=== PATIENT | female | born 1995 | race Hispanic/Latino ===

== ENCOUNTER → 2024-03-17 15:57 | Outpatient (CLI) | payer OTHER, SELFPAY ==
[2024-03-17 16:15] LABS: Hematocrit 41.6 % (36-46); Hemoglobin 13.9 g/dL (12.0-16.0); Mean Corpuscular HGB Conc 33.5 % (30-36); Mean Corpuscular Hemoglobin 29.7 PG (26-34); Mean Corpuscular Volume 88.7 fL (80-100); Platelet Count 309 X10^3/uL (150-400); Red Blood Cell Count 4.69 X10^6/uL (4.0-5.2); Red Cell Distribution Width 13.3 % (11.6-14.8); White Blood Cell Count 8.4 X10^3/uL (4.5-11.0)
[2024-03-17 16:42] LABS: HEMOLYSIS < 15 (0-50)
[2024-03-17 16:45] LABS: HEMOLYSIS < 15 (0-50); Iron 100 ug/dL (37-170)
[2024-03-17 16:47] LABS: Alanine Aminotransferase 17 IU/L (<35); Albumin 4.7 g/dL (3.5-5.0); Albumin Globulin Ratio 1.6 (1.0-2.8); Alkaline Phosphatase 119 U/L (38-126); Aspartate Aminotransferase 22 IU/L (14-36); BUN Creatinine Ratio 13.1 (6-22); Bilirubin Total 0.4 mg/dL (0.2-1.3); Blood Urea Nitrogen 8 mg/dL (7-17); Calcium 9.9 mg/dL (8.4-10.2); Carbon Dioxide 29 mmol/L (22-32); Chloride 103 mmol/L (98-107); Estimated Glomerular Filt Rate > 60 mL/min (>60); Globulin 2.9 g/dL (1.7-4.1); Glucose 103 mg/dL (70-100); Potassium 4.1 mmol/L (3.4-5.1); Sodium 139 mmol/L (137-145); Total Protein 7.6 g/dL (6.3-8.2)
[2024-03-17 16:56] LABS: Percent Iron Saturation 29 % (15-50); Total Iron Binding Capacity 343 ug/dL (265-497); Transferrin 280 mg/dL (206-381)
[2024-03-17 16:57] LABS: Vitamin D 25 Hydroxy (D3) 19.5 ng/mL (30.0-100.0)
[2024-03-17 17:16] LABS: TSH w/ Reflex to FT4 2.71 uIU/mL (0.47-4.68)
[2024-03-17 17:22] LABS: Ferritin 39 ng/mL (6-137)
[2024-03-17 17:37] LABS: Vitamin B12 Reflex MMA if <400 673 pg/mL (239-931)
[2024-03-17 17:52] LABS: Folate 11.5 ng/mL (2.76-20.0)
== END ==
PROVIDERS: PCP Family Medicine; Referring Provider Family Medicine; Visit Provider Family Medicine
DX: F32.A Depression, unspecified (principal); R53.83 Other fatigue; Z13.21 Encounter for screening for nutritional disorder; G47.00 Insomnia, unspecified; Z86.39 Personal history of other endocrine, nutritional and metabolic disease; F41.9 Anxiety disorder, unspecified; Z80.3 Family history of malignant neoplasm of breast
CPT/HCPCS: 36415; 80053; 82306; 82607; 82728; 82746; 83540; 83550; 84443; 85027

== ENCOUNTER → 2024-08-02 12:22 | Outpatient (CLI) | payer OTHER, SELFPAY ==
--- NOTE | 2024-08-02 12:23 | DI.US.S_ITS ---
PROCEDURE: US OB >= 14 WEEKS FETUS INDICATIONS: 20 WEEK ANATOMY OUTSIDE/PRIOR DATING DATA: Last menstrual period (LMP): 03/05/2024 LMP-based estimated date of delivery (ONUR): 12/20/2024. First dating scan (date and location): 05/07/2025. Estimated date of delivery (ONUR) from first dating scan: 12/20/2024. TECHNIQUE: Real-time scanning was performed of the fetus, with image documentation and biometric measurements. COMPARISON: None. FINDINGS: General: A single living intrauterine gestation is present. Presentation: Vertex. Placenta: Placental position is anterior , without previa. Amniotic fluid index: 17.6 cm, normal range is 5-24 cm. Single deepest vertical pocket is 6.3 cm. heart rate: 143 beats per minute. Maternal cervical canal: 3.2 cm long. Normal lower limit is 2.5 cm. biometrics: Biparietal diameter: 5.0 cm 21 weeks 1 day Head circumference: 18.9 cm 21 weeks 1 day Abdominal circumference: 16.8 cm 21 weeks 6 days Femur length: 3.5 cm 21 weeks 0 days Clinically estimated gestational age: 20 weeks 0 days Composite gestational age from present scan: 21 weeks 2 days Estimated weight and percentile: 422 g 98th percentile Anatomic survey: Neuro: Ventricles are non-dilated at less than 10 mm. Cisterna magna is normal at 3-11 mm. Cerebellum is normal in size and morphology. Nuchal skin fold: Normal at less than 6 mm between 14-21 weeks gestational age. Face: Nose and lips, facial profile are are suspicious for cleft lip on the right.. Spine: No evidence for spina bifida. Heart: 4-chambered heart is present, with normal ventricular outflow tracts. Diaphragm: Diaphragm is intact. Stomach: Left-sided stomach is present. Kidneys: No hydronephrosis. Normal is less than 5 mm in 2nd trimester, less than 7 mm in 3rd trimester. Cord: 3-vessel cord has orthotopic insertion. Bladder: Normal in size. Extremities: All 4 extremities identified. IMPRESSION: Single live intrauterine with gestational age today of 21 weeks 2 days. There is high suspicion for cleft lip on the right. Follow-up with tertiary care center is recommended. We strive to produce accurate, complete, and clear reports of imaging services. To assist us in improving patient care, this report was composed using standard report templates and voice recognition software. Therefore, it may contain abnormal punctuation, insertions and/or omissions. Occasional wrong-word or sound-alike substitutions may occur. Though we review the report and make efforts to correct it, we do recommend that the report be read carefully in proper context to recognize any text inaccuracies. Dictated by: Linda Orellana M.D. on 08/02/2024 at 16:33 Approved by: Linda Orellana M.D. on 08/02/2024 at 16:38
== END ==
PROVIDERS: PCP Family Medicine; Referring Provider Nurse Practitioner Obstetrics & Gynecology; Visit Provider Nurse Practitioner Obstetrics & Gynecology
DX: Z34.92 Encounter for supervision of normal pregnancy, unspecified, second trimester (principal); Z3A.21 21 weeks gestation of pregnancy
CPT/HCPCS: 76811

== ENCOUNTER 2024-11-19 14:30 | Inpatient (IN) | payer OTHER, SELFPAY ==
--- NOTE | 2024-11-19 14:40 | DI.US.S_ITS ---
PROCEDURE: US OB LIMITED INDICATIONS: JEREMI OUTSIDE/PRIOR DATING DATA: Last menstrual period (LMP): 03/05/2024. LMP-based estimated date of delivery (ONUR): 12/20/2024. First dating scan (date and location): 05/07/2024. Estimated date of delivery (ONUR) from first dating scan: 12/20/2024. The calculations are made using the working ultrasound ONUR of 12/20/2024. TECHNIQUE: Real-time scanning was performed of the fetus, with image documentation. Endovaginal scannin images. COMPARISON: None. FINDINGS: A single living intrauterine gestation is present. Presentation: Vertex. Placenta: Placental position is anterior, without previa. Amniotic fluid index: 3.1 cm, normal range is 5-24 cm. Single deepest vertical pocket is 2.0 cm. heart rate: 163 beats per minute. Maternal cervical canal: Not evaluated. Clinically estimated gestational age: 35 weeks 4 days IMPRESSION: Single living intrauterine with heart rate 163 beats per minute. Continued follow-up suggested Amniotic fluid index approximately 3.1 cm. Dictated by: Robert Gao M.D. on 11/19/2024 at 16:34 Approved by: Robert Gao M.D. on 11/19/2024 at 16:44
[2024-11-19 16:46] LABS: Add Manual Diff / Slide Review NO; Hematocrit 37.1 % (36-46); Hemoglobin 12.8 g/dL (12.0-16.0); Lymphocytes Absolute Auto 2000 /uL (1100-4500); Mean Corpuscular HGB Conc 34.6 % (30-36); Mean Corpuscular Hemoglobin 30.8 PG (26-34); Mean Corpuscular Volume 89.1 fL (80-100); Platelet Count 163 X10^3/uL (150-400)
--- NOTE | 2024-11-19 18:35 | PM.OBHP.1 ---
OB HPI Date/Time Date of admission: 11/19/24 Date Patient Seen: 11/19/24 Time Patient Seen: 18:00 History of Present Condition Chief complaint: NST : 5 Para: 3 Estimated Date of Delivery: 12/10/24 Estimated Gestational Age (weeks): 37w0d Narrative: Bharti Diamond is a 29 year old female at 37 weeks 0d consistent with LMP and MFM serial ultrasounds. She presents alone for an IOL following diagnosis of oligohydramnios by MFM earlier today. Bharti was planning a homebirth. She is GBS negative. Normal care with CNM co-managed by [facility] for cleft lip. She reports normal movement. No bleeding, cramping, or leaking of fluid. She is planning an unmedicated . She is here with her solution strategist, Beronica. Her is not present because he is deployed. Indications Indication for induction OB: oligohydramnios History of Present care: good care, initiated at week # (9), number of visits (8) and pounds weight gain (32) Dating criteria: other (based on LMP confirmed by serial MFM US and MFM recommendation) Ultrasounds: abnormal US findings (cleft lip) Obstetrical complications: none Medical complications: none Preadmission Labs -: Antibody screen: negative, Cystic fibrosis screen: unknown, GBS status: negative, HBsAG: negative, HIV: negative, HSV 1: positive, HSV 2: positive and RPR/VDLR: negative -: Chlamydia screen: not detected and Gonorrhea screen: not detected -: Rubella: immune and Varicella: immune HCT: 37.1 HCAB: negative PAP: Normal Cell-free DNA: negative x3 Urine: negative 1 hr GTT: 117 Prior (ies) Hx # Term Pregnancies: 3 Hx # Pregnancies: 0 Number of Living Children: 3 Multiple births: 0 Spontaneous abortions: 1 Ectopic pregnancies: 0 Elective abortions: 0 Evaluation Evaluation Baseline heart rate: 140 Variability: Moderate (6-25) monitor accelerations: Absent Monitor Decelerations: Absent Contraction Frequency (minutes): 4 Category of Tracing: Non-reactive Dilation (cm): 2 Effacement (%): 50 Dilation: 1-2 cm Effacement: 40-50% station: -2 Position of cervix: mid Consistency: soft Anderson score: 6 PFSH Medical History depression History of hypothyroidism Pelvic injury Family History (Updated 11/19/24 @ 19:18 by Dania Arcehr CNM, MANAN) Aunt Cancer Other Thyroid disease Meds Home Medications and Allergies Home Medications ?Medication ?Instructions ?Recorded ?Confirmed ?Type Vitamins 1 tab PO 1XD 11/19/24 11/19/24 History Allergies Allergy/AdvReac Type Severity Reaction Status Date / Time No Known Drug Allergies Allergy Unverified 11/19/24 18:51 Review of Systems Review of Systems Narrative: All normal unless otherwise stated OB Exam Vital signs Blood Pressure: 109/63 Pulse Rate: 88 Respiratory Rate: 16 Temperature: 97.3 F Objective Labs 11/19/24 16:30 Labs: Laboratory Results - last 24 hr 11/19/24 16:30 WBC 8.9 RBC 4.16 Hgb 12.8 Hct 37.1 MCV 89.1 MCH 30.8 MCHC 34.6 RDW 13.3 Plt Count 163 Neut % (Auto) 72.7 Lymph % (Auto) 22.0 L Peach % (Auto) 4.1 Eos % (Auto) 0.9 L Baso % (Auto) 0.3 Neut # (Auto) 6500 Lymph # (Auto) 2000 Peach # (Auto) 400 Eos # (Auto) 100 Baso # (Auto) 0 Blood Type B Positive Antibody Screen Negative Assessment and Plan Assessment and Plan Assessment and Plan narrative: Assessment: Term nullipara Induction for oligohydramnios complicated by cleft lip Cat I FHR Plan: Admit to [facility]. Begin pitocin per protocol. Provide education regarding labor induction including detailed discussion and recommendation of options available. Reviewed plan and how to make hospital induction comfortable for patient. Provide emotional and physical support through active labor. Monitor wellbeing via continuous external monitoring. Anticipate NSVB. Time-Based Coding :: [TOTAL MINUTES] spent with patient and on the chart (including review of chart, obtaining history, exam, reviewing outside data, placing orders, documenting exam and treatment plan, and counseling patient) on [DATE].
[2024-11-19] MEDS: LACTATED RINGERS 1,000 ML 100 ML IV (18:38)
[2024-11-19] MEDS: OXYTOCIN PREMIX 30 UNIT/500 ML PLAST..BAG IV (18:39)
[2024-11-19 18:45] VITALS: BP 115/64
[2024-11-19 19:32] VITALS: BP 109/63; PULSE 88; RESP 16; TEMP 36.3
--- NOTE | 2024-11-19 22:41 | PM.OBPNLAB ---
Date/Time Date Patient Seen: 11/19/24 Time Patient Seen: 22:41 Pain Control Pain control: tolerating well Comments: Bharti is tolerating labor well with her teacher instrumental, Beronica, at her side. She reports mild contractions with increasing frequency and is talking through them. She is staying hydrated and attempting to rest, but is unable to sleep at this time due to increased movement. Pelvic Exam Effacement (%): 50 station: -2 Comments: CE: Bharti declined cervical exam at this time. VS: BP: 109/64 HR: 81 bpm Temp: 36.2 C Contractions Date/Time contractions began: 1844 Contractions on admission: none Monitor mode: External Pitocin rate (mU/min): 10 Contraction frequency (min): 5 Contraction duration (min): 1 Contraction pattern: Irregular Contraction intensity: Mild Status status: Category l Heart Rate Baseline: 130 Monitor Accelerations: Present Monitor Decelerations: Absent Monitor Variability: Moderate Assessment and Plan Assessment: induction ongoing Plan: continuous present management Comments: Assessment: Term nullipara Induction ongoing Cat I FHR Oligohydramnios Early labor Plan: Increase pitocin for labor augmentation. Monitor wellbeing with cEFM. Encourage rest through early labor. Anticipate NSVB.
--- NOTE | 2024-11-20 02:55 | P.PCNOB_ITS ---
Labor & Delivery Delivery date: 11/20/24 Delivery Time: 02:55 Induction method: per pitocin protocol Delivery monitor: external FHT Route of delivery: L&D Laceration Description: None Estimated blood loss (mL): 176 Anesthesia Type: None Narrative: Labor progressed well with pitocin, max 12 mu/min. At 0132, she was actively laboring and asked to go to tub. Bharti asked for exam at 0204 and was found to be complete at 0212 while in the tub so we went back to her room. At 0218 she began spontaneously pushing and pushed effectively for a short 2nd stage. FHR was Cat 1 throughout 2nd stage. . Estiven, on FaceTime from deployment, supporting Bharti with prayer. SROM, clear fluid, and NSVB of baby with one push at 0226, no concern for shoulder dystocia. Baby cried immediately and was held and dried by CNM until Bharti was ready to reposition herself to meet him. Baby [place] was passed through her legs and then placed on the bed in front of her; while she was standing up, the placenta delivered spontaneously. Apgars 8/9. Bharti crawled into bed and snuggled skin to skin with [place]; they remained skin to skin while cord was cut and perineum inspected. Placenta and 3 vessel cord examined and appeared to be intact. Pitocin @ 334 mu/min started for AMTSL after Bharti crawled into bed with her baby. 3 vessel cord clamped and cut by at 10 minutes of life after cord pulsing had slowed. Cord blood collected per protocol. Perineum inspected and found to be intact. Blood loss measured and estimated loss is 176 mL. Mom and baby left stable and is being initiated. Bharti is thrilled to meet their baby. Dania HINKLE, CNM, IBCLC [place] [facility] 1: gender: Male Presentation: vertex Position: Left Occiput Anterior Placenta delivery description: Spontaneous Cord Vessel Description: 3 Vessels score (1 min): 8 score (5 min): 9 weight: 2.836 kg Narrative: Cleft lip and palate noted in . Plan for aftercare: Routine care
[2024-11-20] MEDS: KETOROLAC 30 MG/ML VIAL IV (04:05)
[2024-11-20] MEDS: DERMOPLAST SPRAY 20% 60 ML 1 SPRAY TOP (04:06)
[2024-11-20] MEDS: LANOLIN OINT 7 GM 1 APPLIC TOP (04:06)
--- NOTE | 2024-11-21 07:07 | P.DS_ITS ---
Discharge Providers Provider Date of admission: 11/19/24 14:30 Discharge Date: 11/21/24 Primary care physician: Fabrice Burnette MD Consults: 11/19/24 15:54 Consult to Anesthesiology Urgent Comment: Consulting Provider: Anesthesiologist Reason for consultation: Epidural Has provider been notified: Yes 11/20/24 03:39 Consult to Hardwood Floor Installer Routine Comment: Discharge provider: Yael Carrizales CNM Summary Hospital Course Date Patient Seen: 11/21/24 Time Patient Seen: 07:08 Diagnoses: O80, O63.2, Hospital Course: IOL for oligohydramnios @ 37wks with pitocin (max mariee 12mu/min) resulted in precipitous labor and uncomplicated vaginal without anesthesia. PPD1: Voiding, ambulating and pumping/bottle and syringe feeding her son independently. Vaginal bleeding is light, without clots. Tolerating a general diet. Denies pain and has not been taking medication. Eager for discharge to home this morning. Peripartum Data Infant Delivery Method: Natural Vaginal Laceration Description: None Episiotomy description: None complications: none 1: Gender: Male Disposition of : home Discharge Diagnosis (1) Encounter for full-term uncomplicated delivery: Status: Acute (2) Precipitate labor: Status: Acute Status at Discharge Cognitive/behavioral status at discharge: oriented and calm Functional status at discharge: independent ambulation Overall status at discharge: patient is progressing back to baseline Time Spent with Patient Time attestation: Total time spent providing and/or coordinating discharge services: Objective Labs 11/19/24 16:30 Exam Vital Signs (past 8 hours): BP 108/74, HR 81bpm, RR 17, T 97.9F, SpO2 98% Other: Fundud firm @ U-1, lochia scant, no clots. Perineum intact, no edema. Psych Appearance: grossly normal and well kempt Mental Status: mental status grossly normal Speech and Movement: speech and movement normal Mood: congruent mood Affect: normal affect Discharge Plan Discharge Plan Patient Disposition: Home Discharge orders & Medications Prescriptions: Continued Vitamins 1 tab PO 1XD Follow up/Referrals: Fabrice Burnette MD [Primary Care Provider, Family Practice] Yael Carrizales CNM [[facility] Teacher, SUPERVIS[employer]] Referral Note: Follow-up in 2 weeks and 6 weeks , in office. Appointments are in your email. Diet/Activity/Treatments Diet: Diet as Tolerated and Regular Activity: bed rest x 2 weeks, pelvic rest x 6 weeks Skin/Wound/Dressing Care Report to your healthcare provider any signs of infection, such as:: chills, fever, increased pain, unusual drainage and unusual redness Visit Report/Discharge Packet Instructions: Depression Stand Alone Forms: Patient Portal/API, Stroke Signs & Symptoms Discharge Data Primary Care Provider: Fabrice Burnette Attending Provider: Dania Archer Admit Date/Time: 11/19/24 14:30
== END 2024-11-21 13:45 | disposition home or self-care (01) | DRG 806 ==
PROVIDERS: Admitting Provider Advanced Practice Midwife; PCP Family Medicine; Referring Provider Advanced Practice Midwife; Visit Provider Advanced Practice Midwife
DX: O41.03X0 Oligohydramnios, third trimester, not applicable or unspecified (principal); O98.52 Other viral diseases complicating childbirth; Z37.0 Single live birth; Z3A.37 37 weeks gestation of pregnancy; B00.9 Herpesviral infection, unspecified; O62.3 Precipitate labor
CPT/HCPCS: 36415; 59050; 76815; 76820; 85025; 86850; 86900; 86901; G0378; G0379; J1885; J2590